=== PATIENT | female | born 1985 | race Two or more races ===

== ENCOUNTER 2022-07-17 12:27 | Inpatient (IN) | payer OTHER ==
[~2022-07-17] VITALS: Ht 157.5 cm; Wt 41.7 kg
[2022-07-24] MEDS ORDERED: IBUPROFEN800 MG (10:24)
== END 2022-07-24 13:15 | disposition home or self-care (01) | DRG 743 ==
LOC: OB/GYN 07-23 07:00 → O/R 07-23 08:11 → OB/GYN 07-23 08:45
PROVIDERS: ADMIT Specialist; ATTEND Specialist
PROC: 0UT04ZZ Resection of Right Ovary, Percutaneous Endoscopic Approach (ICD-10-PCS; 2022-07-23)
PROC: 0UT94ZZ Resection of Uterus, Percutaneous Endoscopic Approach (ICD-10-PCS; principal; 2022-07-23 07:00)
DX: D25.2 Subserosal leiomyoma of uterus (principal); N83.11 Corpus luteum cyst of right ovary; N83.01 Follicular cyst of right ovary; Z20.822 Contact with and (suspected) exposure to COVID-19

== ENCOUNTER 2025-07-30 11:33 | Emergency (ER) | payer OTHER ==
[~2025-07-30] VITALS: Ht 157.5 cm; Wt 50.3 kg
[~2025-07-30 11:33] MED LIST: IBUPROFEN800 MG
[2025-07-30 11:54] VITALS: BP 119/77; O2SAT 97
[2025-07-30] MEDS ORDERED: ONDANSETRON HCL 2 MG/ML VIAL IV STA (13:04)
[2025-07-30] MEDS ORDERED: FAMOTIDINE/PF 20 MG/2 ML VIAL IV STA (13:04)
[2025-07-30] MEDS ORDERED: KETOROLAC TROMETHAMINE 30 MG VIAL IU STA (13:04)
[2025-07-30] MEDS ORDERED: 0.9 % SODIUM CHLORIDE 1,000 ML IV STA (13:06)
[2025-07-30] MEDS ORDERED: ONDANSETRON HCL 2 MG/ML VIAL ONE ×2 (14:09→15:05)
[2025-07-30] MEDS ORDERED: KETOROLAC TROMETHAMINE 30 MG VIAL ONE ×2 (14:09→15:04)
[2025-07-30] MEDS ORDERED: FAMOTIDINE/PF 20 MG/2 ML VIAL ONE ×2 (14:10→15:05)
[2025-07-30 15:33] LABS: BASO % 0.5 % (0.1-1.2); EOS # 0.06 (0.04-0.54); EOS % 0.9 % (0.7-7.0); LYMPH # 2.54 (1.18-3.74); LYMPH % 38.3 % (19.3-53.1); MEAN PLATELET VOLUME 9.70 fl (9.4-12.4); MONO # 0.45 (0.24-0.82); MONO % 6.8 % (4.7-12.5); NEUT # 3.52 (1.56-6.13); NEUT % 53.0 % (34.0-71.1); RED CELL DISTRIBUTION WIDTH 12.2 % (11.6-14.4)
[2025-07-30 15:34] LABS: ERYTHROCYTE SEDIMENTATION RATE < 1 mm/hr (0-20)
[2025-07-30 16:09] LABS: ALT/SGPT 21.0 U/L (12-78); AST/SGOT 13.0 U/L (15-37); BILIRUBIN TOTAL 0.31 mg/dL (0.3-1.2); BUN CREA RATIO 16.0 (7.0-25.0); CREATININE SERUM 0.87 mg/dL (0.55-1.02); GFR 72.87; GLOBULINA 3.2 G/DL (2.4-3.5); GLUCOSE FASTING 71.0 mg/dL (65-100); OSMOLALITY SERUM 284.0 MOSM/KG (275-295)
[2025-07-30] MEDS ORDERED: HYOSCYAMINE SULFATE 0.125 MG TAB.SUBL SL STA (16:17)
[2025-07-30] MEDS ORDERED: HYOSCYAMINE SULFATE 0.125 MG TAB.SUBL ONE (17:46)
== END 2025-07-30 19:31 | disposition home or self-care (01) ==
LOC: ER 11:34
PROVIDERS: General Practice
DX: R10.84 Generalized abdominal pain (principal); Z91.041 Radiographic dye allergy status; Z88.8 Allergy status to other drugs, medicaments and biological substances; K58.8 Other irritable bowel syndrome